=== PATIENT | female | born 1985 | race Hispanic/Latino ===

== ENCOUNTER 2024-10-10 08:02 | Emergency (ER) | payer SELFPAY ==
[2024-10-10] MEDS ORDERED: Ibuprofen 800 MG TAB ONE (08:08)
== END 2024-10-10 09:04 | disposition home or self-care (01) ==
LOC: NAV ERS 08:02
DX: J11.1 Influenza due to unidentified influenza virus with other respiratory manifestations (principal)
CPT/HCPCS: 87428; 99283